=== PATIENT | female | born 1940 | race Caucasian/White ===

== ENCOUNTER 2017-12-16 14:05 | Outpatient (CLI) | payer MEDICARE | END 2017-12-16 14:06 | disposition home or self-care (01) | LOC: BICMAMMO 14:05 | PROVIDERS: ATTEND Internal Medicine | DX: M81.0 Age-related osteoporosis without current pathological fracture (principal) | CPT/HCPCS: 77080 ==

== ENCOUNTER 2017-12-27 11:08 | Outpatient (CLI) | payer MEDICARE | END 2017-12-27 11:09 | disposition home or self-care (01) | LOC: BICRAD 11:08 | PROVIDERS: ATTEND Podiatrist | DX: M25.572 Pain in left ankle and joints of left foot (principal); M72.2 Plantar fascial fibromatosis; M19.072 Primary osteoarthritis, left ankle and foot ==

== ENCOUNTER 2018-12-13 10:11 | Outpatient (CLI) | payer MEDICARE ==
--- NOTE | 2018-12-13 12:53 | ULT ---
CAROTID DOPPLER: Ultrasound and Doppler study is performed in the extracranial carotid arteries. Color Doppler, spect ral analysis, and velocity recordings obtained. INDICATION: Aphasia. FINDINGS: Ultrasound images show mild echogenic plaque in the bulb regions. There is mild increased velocity in the left internal carotid artery recorded at 128 cm/s systolic. This does suggest hemodynamically significant stenosis in the 50% diameter range. Vertebral arteries show antegrade flow. IMPRESSION: Evidence of hemodynamically significant stenosis in the left internal carotid artery. Correlate with CTA neck. POS: IVAN
== END 2018-12-13 10:12 | disposition home or self-care (01) ==
LOC: BICULT 10:11
PROVIDERS: ATTEND Surgery
DX: R47.01 Aphasia (principal); I65.22 Occlusion and stenosis of left carotid artery
CPT/HCPCS: 93005; 93010; 93880

== ENCOUNTER 2018-12-13 11:19 | Outpatient (CLI) | payer MEDICARE ==
--- NOTE | 2018-12-14 11:39 | EKG ---
Test Reason : Blood Pressure : / mmHG Vent. Rate : 067 BPM Atrial Rate : 067 BPM P-R Int : 118 ms QRS Dur : 088 ms QT Int : 392 ms P-R-T Axes : -05 014 012 degrees QTc Int : 414 ms Normal sinus rhythm Low voltage QRS Nonspecific ST abnormality Abnormal ECG Confirmed by ARMIDA JOHNSTON ([id number]) on 12/14/2018 11:38:28 AM Referred By: DARIA Confirmed By:ARMIDA JOHNSTON
== END 2018-12-13 11:20 | disposition home or self-care (01) ==
LOC: LABBT 11:19
PROVIDERS: ATTEND Surgery
DX: Z01.810 Encounter for preprocedural cardiovascular examination (principal); K80.20 Calculus of gallbladder without cholecystitis without obstruction
CPT/HCPCS: 93005; 93010

== ENCOUNTER 2018-12-15 07:09 | Day surgery (SDC) | payer MEDICARE ==
[2018-12-13 11:28] VITALS: BMI 19.3
[2018-12-15] MEDS ORDERED: Bupivacaine/Epinephrine 0.25% 30 ML VIAL ONE (10:07)
[2018-12-15] MEDS ORDERED: Iothalamate Meglumine 60% 50 ML VIAL FS ONE (10:07)
[2018-12-15] MEDS ORDERED: Famotidine/PF 20 mg/2ml Vial ONE (10:09)
[2018-12-15] MEDS ORDERED: Fentanyl 100 MCG/2 ML VIAL ONE ×2 (10:09→11:47)
--- NOTE | 2018-12-15 12:59 | RAD ---
XR Cholangiogram in Surgery HISTORY: Gallstones. Slightly dilated common bile duct noted on ultrasound. COMPARISON: None. FINDINGS: 3 films presented for interpretation showing filling of the common bile duct without eviden ce of any ductal calculus. There is emptying into the duodenum. IMPRESSION: Unremarkable operative cholangiogram
[2018-12-15] MEDS ORDERED: Morphine 2 MG/ML SYRINGE ONE (13:02)
[2018-12-15] MEDS ORDERED: PROPOFOL 200 MG/20 ML VIAL ONE (14:23)
[2018-12-15] MEDS ORDERED: Glycopyrrolate 0.2 MG/ML 5 ML SYRINGE ONE (14:23)
[2018-12-15] MEDS ORDERED: Ketorolac Tromethamine 30 MG/ML VIAL ONE (14:23)
[2018-12-15] MEDS ORDERED: Lidocaine 1% PF 5 ML VIAL ONE (14:23)
[2018-12-15] MEDS ORDERED: Dexamethasone 20 MG/5 ML VIAL ONE (14:23)
[2018-12-15] MEDS ORDERED: Metoclopramide HCl 10 MG/2 ML VIAL ONE (14:23)
[2018-12-15] MEDS ORDERED: Rocuronium Bromide 10 MG/ML (10ML VIAL) ONE (14:23)
[2018-12-15] MEDS ORDERED: PHENYLEPHRINE-NS 100 MCG/ML 10 ML SYRINGE ONE (14:23)
[2018-12-15] MEDS ORDERED: Ondansetron PF 4 MG/2 ML Vial ONE (14:23)
--- NOTE | 2018-12-16 08:23 | PDOC.OP ---
Operative Note - Operative Note Operative Note: DATE OF PROCEDURE: 12/15/2018 PROCEDURES: Laparoscopic cholecystectomy with intraoperative cholangiogram. SURGEON: Arlen Salas M.D. PREOPERATIVE DIAGNOSIS: Cholelithiasis, cholecystitis and possible choledocholithiasis POSTOPERATIVE DIAGNOSIS: Cholelithiasis and cholecystitis FINDINGS: White walled chronically inflamed gallbladder with some omental and duodenal adhesions. No filling defects or obstruction seen on cholangiogram, although passage of contrast into the duodenum was somewhat slow and the distal duct appeared relatively narrow. HISTORY: Patient with signs and symptoms of biliary colic. Laparoscopic cholecystectomy was recommended for symptomatic relief and prevention of future episodes. Intraoperative cholangiogram was also recommended due to a history of transiently elevated bilirubin. PROCEDURE: After informed consent was obtained and appropriate preoperative antibiotics were administered, the patient was taken to the operating room and placed in the supine position and general endotracheal anesthesia was administered. The stomach was decompressed with an OG tube and the abdomen was prepped and draped in standard sterile fashion. Local anesthesia was infused to the skin and subcutaneous tissues at the umbilical level. A transverse skin incision was made. The fascia was elevated and a Veress needle was placed into the abdominal cavity without difficulty. Opening pressure was less than 5 and carbon dioxide gas easily insufflated to an intra-abdominal pressure of 15, which the patient tolerated well. The Veress needle was withdrawn and a [place] port advanced under direct vision. The abdominal cavity was carefully examined. There was no evidence of Veress needle or of trocar injury. Local anesthesia was infused to the skin and subcutaneous tissues at the epigastric, right upper quadrant, and right lateral abdominal sites and trocars were placed under direct vision of the laparoscope. The fundus of the gallbladder was grasped and retracted superiorly. The infundibulum was grasped and retracted laterally. Omental and duodenal adhesions were carefully taken down through the avascular plane avoiding any use of electrocautery in proximity to the duodenum. The serosa was stripped inferiorly at the level of the neck of the gallbladder exposing the cystic duct and artery which were traced clearly to their insertion in the gallbladder. These were dissected free circumferentially and the cystic duct was clipped at the level of the neck of the gallbladder. The cystic artery was clipped but not divided. An incision was made in the cystic duct inferior to the clip and the cystic duct was palpated with no stones palpable. Clear bile was seen to flow from the cystic duct incision. A cholangiogram catheter was introduced and placed into the cystic duct and secured with a clip. A cholangiogram was obtained which showed an adequate length of cystic duct. There was normal filling of the common bile duct with somewhat slow flow of contrast into the duodenum but no evidence of filling defects or obstruction. There was normal retrograde flow into the common hepatic duct beyond the level of the bifurcation without filling defects. The distal common bile duct was carefully examined and appeared relatively narrow but there were again no filling defects or obstructions seen. The cholangiogram catheter was removed and the cystic duct clipped below the incision in the cystic duct. The cystic duct was divided between these clips and the previously placed clip. The cystic artery was clipped and divided between the previously placed clips. The gallbladder was then dissected free of the gallbladder bed using hook electrocautery. Prior to complete removal of the gallbladder from the gallbladder bed, the area of the cystic duct and artery stumps was examined. The clips were in good position completely across these structures and there was no bleeding and no leakage of bile. The gallbladder was then placed into an EndoCatch bag and drawn out through the epigastric incision. The epigastric trocar was replaced and the operative site easily irrigated to clear. There was no significant bleeding or spillage of bile. The epigastric trocar was removed and the fascia closed under direct laparoscopic vision with a 0 Vicryl suture on a GraNee needle in a figure-of- eight manner with excellent technical result. The right upper quadrant and right lateral abdominal trocars were removed and hemostasis verified. Carbon dioxide gas was allowed to desufflate through the umbilical trocar which was then removed. The skin incisions were closed with 4-0 subcuticular Monocryl sutures and Dermabond dressings were placed. The patient was extubated and taken to the recovery room in good condition. There were no complications. ESTIMATED BLOOD LOSS: Minimal. SPECIMEN : Gallbladder and contents.
== END 2018-12-15 14:30 | disposition home or self-care (01) ==
LOC: SDC 07:09
PROVIDERS: ATTEND Surgery
PROC: 0FT44ZZ Resection of Gallbladder, Percutaneous Endoscopic Approach (ICD-10-PCS; principal; 2018-12-15)
PROC: BF001ZZ Plain Radiography of Bile Ducts using Low Osmolar Contrast (ICD-10-PCS; 2018-12-15)
DX: K80.10 Calculus of gallbladder with chronic cholecystitis without obstruction (principal); K66.0 Peritoneal adhesions (postprocedural) (postinfection); R47.01 Aphasia; M81.0 Age-related osteoporosis without current pathological fracture; Z79.899 Other long term (current) drug therapy
CPT/HCPCS: 47532; 88304; J0131; J0690; J1610; J2270; J3010; S0028

== ENCOUNTER 2019-01-02 07:00 | Outpatient (CLI) | payer MEDICARE ==
--- NOTE | 2019-01-02 08:58 | CT ---
CTA NECK WITH AND WITHOUT CONTRAST: HISTORY: Carotid stenosis. COMPARISON: Carotid ultrasound dated 12/13/2018. FINDINGS: The lung apices are clear. Mild vascular calcifications of the aorta. Heart size is mildly enlarged . Multiple small thyroid nodules. Mild degenerative disc space disease of the cervical spine. No susp icious osteolytic or osteoblastic lesions. The left vertebral artery is dominant. The right vertebral artery is very small. The left common carotid artery is patent. Per NASCET criteria, no hemodynamically significant stenos is. The right common carotid artery is patent. Per NASCET criteria, no hemodynamically significant steno sis. Both internal carotid arteries are tortuous. IMPRESSION: 1. Per NASCET criteria, no hemodynamically significant stenosis of the internal carotid arteries. 2. Very tortuous internal carotid arteries, indicating long-standing hypertension. Transcribed Date/Time: 01/02/2019 9:05 AM
[2019-01-02] MEDS ORDERED: Iopamidol 370 76% 100 ML VIAL ONE (10:04)
== END 2019-01-02 07:01 | disposition home or self-care (01) ==
LOC: CT 07:00
PROVIDERS: ATTEND Thoracic Surgery (Cardiothoracic Vascular Surgery)
DX: I65.22 Occlusion and stenosis of left carotid artery (principal); I77.1 Stricture of artery; I10 Essential (primary) hypertension
CPT/HCPCS: 70498; 82565; Q9967